=== PATIENT | male | born 1980 | race Caucasian/White ===

== ENCOUNTER 2017-08-31 05:54 | Emergency (ER) | payer OTHER ==
[~2017-08-31] VITALS: Ht 175.3 cm; Wt 74.8 kg
[~2017-08-31 05:54] MED LIST: GEODON40 MG ORAL; LITHIUM CARBON300 MG ORAL; MIRTAZAPINE15 M3 ORAL
[2017-08-31 06:00] VITALS: BP 118/72
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
[2017-08-31 06:54] VITALS: BP 118/72
== END 2017-08-31 06:54 | disposition home or self-care (01) ==
LOC: EDBD 05:54 → EMR 06:05
DX: M79.672 Pain in left foot (principal); F31.9 Bipolar disorder, unspecified
CPT/HCPCS: 29540; 99282

== ENCOUNTER 2018-03-19 09:34 | Emergency (ER) | payer OTHER ==
[~2018-03-19] VITALS: Ht 172.7 cm; Wt 68.0 kg
[2018-03-19] MEDS ORDERED: Bacitracin Oint UD TOPIC ONE (10:00)
[2018-03-19] MEDS ORDERED: Tetanus/Diptheria/Pertussis Vaccine 0.5ml Syr IM ONE (10:00)
--- NOTE | 2018-03-19 10:36 | Diagnostic Imaging Report ---
Indication: Altered level of consciousness Technique: Continuous helical CT scanning of the head was performed without intravenous contrast material. Axial and coronal 5 mm sections were generated. Radiation dose was minimized using automated exposure control Dose: Total Dose Length Product - DLP 1196.[address] Dose Index - CTDIvol(s) 70.38 mGy. Comparison: none Findings: The ventricular system is normal in size and configuration. There is no shift of midline structures. No abnormal extra-axial fluid collections are noted. There is no evidence of intracerebral bleeding. No other abnormal high or low density areas are noted within the brain. Intact calvarium. Visualized orbits and sinuses are unremarkable Impression: Normal CT scan of the head without contrast material. The CT scanner at [facility] is accredited by the [employer] and the scans are performed using protocols designed to limit radiation exposure to as low as reasonably achievable to attain images of sufficient resolution adequate for diagnostic evaluation.
[2018-03-19 10:38] VITALS: BP 126/80
[2018-03-19 10:46] LABS: BASOPHILS % (AUTO) 0.9 % (0.0-2.0); EOSINOPHILS % (AUTO) 5.6 % (0.0-3.0); HEMATOCRIT 42.4 % (42.0-52.0); HEMOGLOBIN 13.8 G/DL (14.2-18.0); LYMPHOCYTES % (AUTO) 18.2 % (20.0-45.0); MEAN CORPUSCULAR VOLUME 85 FL (80-99); MONOCYTES % (AUTO) 7.3 % (1.0-10.0); NEUTROPHILS % (AUTO) 68.1 % (45.0-75.0); PLATELET COUNT 205 K/UL (150-450); RED BLOOD COUNT 4.96 M/UL (4.70-6.10); RED CELL DISTRIBUTION WIDTH 12.3 % (11.6-14.8); WHITE BLOOD COUNT 7.3 K/UL (4.8-10.8)
--- NOTE | 2018-03-19 10:56 | Emergency Room Report ---
History of Present Illness General Chief Complaint: Behavioral Complaint Source: EMS - [employer] Present Illness HPI Patient is brought in by EMS with [employer]. His was apparently running in traffic. PD felt that he was risk to himself. He denies any suicidal ideation to me at this time. Is quite lethargic and refuses to answer most questions. The patient was seen here in October 2012 for drug use. He required sedation at that time but was cleared wasn't felt to have any psychiatric issue aside from drug abuse. Allergies: Coded Allergies: No Known Allergies (Unverified , 08/31/17) UNABLE TO ASSESS (Unverified , 03/19/18) Patient History Limited by: medical condition Past Medical History: see triage record, old chart reviewed Social History: Reports: smoking, alcohol use, drug use Social History Narrative on streets - but stays with friends Reviewed Nursing Documentation: PMH: Agreed; PSxH: Agreed Nursing Documentation-PMH Past Medical History: Deferred Review of Systems All Other Systems: limited Physical Exam Vital Signs Date Time Temp Pulse Resp B/P (MAP) Pulse Ox O2 Delivery O2 Flow Rate FiO2 03/19/18 09:41 97.6 96 16 126/80 96 Room Air 97.5 Sp02 EP Interpretation: reviewed, normal General Appearance: no apparent distress, lethargic, other - dishevelled with skin lesions Head: normocephalic Eyes: bilateral eye PERRL, bilateral eye Scleral Injection ENT: moist mucus membranes Neck: supple Respiratory: lungs clear, normal breath sounds Cardiovascular #1: regular rate, rhythm Cardiovascular #2: 2+ radial (R) Gastrointestinal: normal inspection, normal bowel sounds, non tender, no mass, non-distended, scaphoid Musculoskeletal: back normal, normal range of motion Neurologic: responsive, motor strength/tone normal, DTRs symmetric, sensory intact Psychiatric: depressed affect - lethargic Skin: other - skin lesions, no abscesses Medical Decision Making Diagnostic Impression: Primary Impression: Amphetamine abuse Additional Impressions: Self-destructive behavior UTI (urinary tract infection) Qualified Codes: N30.00 - Acute cystitis without hematuria ER Course Patient is brought with altered mentation by EMS and PD. Differential includes drug abuse, head trauma electrolyte abnormality alcohol intoxication amongst others. He'll be evaluated with CT of the head, chest x-ray and labs. He'll be treated with IV hydration and a tetanus will be given. JIMENEZ insisted on writing a 5150. I tried to speak with the mental health evaluation team. The officers still insisted on writing a hold. Labs + for amphetamines, benzos and THC. Slightly elevated CK. Pyuria. CT performed - no lesions. CXR clear. Once back from CT, patient more awake and more argumentative. Rocephin ordered. He refuses this but agrees to take Rx to fill. Refuses tetanus - states had shot few months ago. Patient denies SI. Medically cleared. Call to Dr. Rosales for evaluation. Cleared by Dr. Rosales. He also denies SI and HI to me. Wants to go home. Patient states will have friend come pick and shovel man. Still refuses meds here but will take bacitracin to apply on own. Ambulatory. Patient stable for outpatient observation and treatment. Laboratory Tests Test 03/19/18 10:23 03/19/18 11:45 White Blood Count 7.3 K/UL (4.8-10.8) Red Blood Count 4.96 M/UL (4.70-6.10) Hemoglobin 13.8 G/DL (14.2-18.0) L Hematocrit 42.4 % (42.0-52.0) Mean Corpuscular Volume 85 FL (80-99) Mean Corpuscular Hemoglobin 27.9 PG (27.0-31.0) Mean Corpuscular Hemoglobin Concent 32.6 G/DL (32.0-36.0) Red Cell Distribution Width 12.3 % (11.6-14.8) Platelet Count 205 K/UL (150-450) Mean Platelet Volume 10.3 FL (6.5-10.1) H Neutrophils (%) (Auto) 68.1 % (45.0-75.0) Lymphocytes (%) (Auto) 18.2 % (20.0-45.0) L Monocytes (%) (Auto) 7.3 % (1.0-10.0) Eosinophils (%) (Auto) 5.6 % (0.0-3.0) H Basophils (%) (Auto) 0.9 % (0.0-2.0) Sodium Level 142 MMOL/L (136-145) Potassium Level 4.4 MMOL/L (3.5-5.1) Chloride Level 107 MMOL/L (98-107) Carbon Dioxide Level 27 MMOL/L (21-32) Anion Gap 8 mmol/L (5-15) Blood Urea Nitrogen 15 mg/dL (7-18) Creatinine 0.9 MG/DL (0.55-1.30) Estimate Glomerular Filtration Rate > 60 mL/min (>60) Glucose Level 95 MG/DL (74-106) Calcium Level 8.9 MG/DL (8.5-10.1) Total Bilirubin 0.7 MG/DL (0.2-1.0) Aspartate Amino Transferase (AST) 29 U/L (15-37) Alanine Aminotransferase (ALT) 34 U/L (12-78) Alkaline Phosphatase 90 U/L (46-116) Total Creatine Kinase 437 U/L (26-308) H Total Protein 7.0 G/DL (6.4-8.2) Albumin 3.4 G/DL (3.4-5.0) Globulin 3.6 g/dL Albumin/Globulin Ratio 0.9 (1.0-2.7) L Salicylates Level < 2.0 ug/mL (2.8-20) L Acetaminophen Level < 2 MCG/ML (10-30) L Serum Alcohol < 3 mg/dL Urine Color Yellow Urine Appearance Slightly cloudy Urine pH 6.5 (4.5-8.0) Urine Specific [place] 1.015 (1.005-1.035) Urine Protein 2+ (NEGATIVE) H Urine Glucose (UA) Negative (NEGATIVE) Urine Ketones Negative (NEGATIVE) Urine Blood 1+ (NEGATIVE) H Urine Nitrite Negative (NEGATIVE) Urine Bilirubin Negative (NEGATIVE) Urine Urobilinogen 1 MG/DL (0.0-1.0) H Urine Leukocyte Esterase 2+ (NEGATIVE) H Urine RBC Pending Urine WBC Pending Urine Squamous Epithelial Cells Pending Urine Bacteria Pending Urine Opiates Screen Negative (NEGATIVE) Urine Barbiturates Screen Negative (NEGATIVE) Phencyclidine (PCP) Screen Negative (NEGATIVE) Urine Amphetamines Screen Positive (NEGATIVE) H Urine Benzodiazepines Screen Positive (NEGATIVE) H Urine Cocaine Screen Negative (NEGATIVE) Urine Marijuana (THC) Screen Positive (NEGATIVE) H EKG Diagnostic Results Rate: normal Rhythm: NSR ST Segments: no acute changes Rhythm Strip Diag. Results EP Interpretation: yes Rhythm: NSR, no PVC's, no ectopy Chest X-Ray Diagnostic Results Chest X-Ray Diagnostic Results : Chest X-Ray Ordered: Yes # of Views/Limited/Complete: 1 View EP Interpretation: Yes Interpretation: no consolidation, no effusion, no pneumothorax, no acute cardiopulmonary disease Impression: No acute disease Electronically Signed by: Abel Aguirre MD CT/MRI/US Diagnostic Results CT/MRI/US Diagnostic Results : Imaging Test Ordered: head Impression no bleed, masses, fx Last Vital Signs Date Time Temp Pulse Resp B/P (MAP) Pulse Ox O2 Delivery O2 Flow Rate FiO2 03/19/18 19:59 98.9 119/68 98 Room Air 03/19/18 10:38 16 03/19/18 09:41 96 Status: improved Disposition: HOME, SELF-CARE Condition: Improved Scripts Bacitracin (Bacitracin) 28.4 Gm Oint...g. 1 APPLIC TOPIC BID, #30 GM Prov: Abel Aguirre M.D. 03/19/18 Nitrofurantoin Monohyd/M-Cryst* (MACROBID 100 MG*) 100 Mg Capsule 100 MG ORAL EVERY 12 HOURS, #14 CAP Prov: Abel Aguirre M.D. 03/19/18 Referrals: NOT CHOSEN [facility]/,REFERRING Patient Instructions: Self-Destructive Behavior Additional Instructions: There is a high probability that the patient has MRSA (Staph) Abel Aguirre M.D. Mar 19, 2018 10:56
[2018-03-19 10:57] LABS: ANION GAP 8 mmol/L (5-15); BLOOD UREA NITROGEN 15 mg/dL (7-18); CALCIUM 8.9 MG/DL (8.5-10.1); CARBON DIOXIDE 27 MMOL/L (21-32); CHLORIDE 107 MMOL/L (98-107); CREATININE 0.9 MG/DL (0.55-1.30); POTASSIUM 4.4 MMOL/L (3.5-5.1); SODIUM 142 MMOL/L (136-145)
[2018-03-19 11:04] LABS: ALANINE AMINOTRANSFERASE 34 U/L (12-78); ALBUMIN 3.4 G/DL (3.4-5.0); ALBUMIN/GLOBULIN RATIO 0.9 (1.0-2.7); ALKALINE PHOSPHATASE 90 U/L (46-116); ASPARTATE AMINO TRANSFERASE 29 U/L (15-37); BILIRUBIN,TOTAL 0.7 MG/DL (0.2-1.0); CREATINE KINASE 437 U/L (26-308)
--- NOTE | 2018-03-19 11:21 | Diagnostic Imaging Report ---
Indication: Chest pain Technique: One view of the chest Comparison: none Findings: Lungs and pleural spaces are clear. Heart size is normal Impression: No acute process
[2018-03-19 11:55] LABS: BILIRUBIN, URINE NEGATIVE (NEGATIVE); GLUCOSE, URINE (UA) NEGATIVE (NEGATIVE); KETONES,URINE NEGATIVE (NEGATIVE); LEUKOCYTE ESTERASE ,URINE 2+ (NEGATIVE); NITRITE,URINE NEGATIVE (NEGATIVE); PH,URINE 6.5 (4.5-8.0); PROTEIN,URINE 2+ (NEGATIVE); UROBILINOGEN,URINE 1 MG/DL (0.0-1.0)
[2018-03-19 11:58] LABS: APPEARANCE,URINE SLIGHTLY CLOUDY; COLOR,URINE YELLOW
[2018-03-19] MEDS ORDERED: cefTRIAXone 1 GM in NS 55 ML IVPB ONE (12:30)
[2018-03-19] MEDS ORDERED: NITROFURANTOIN100 M2 ORAL (15:47)
[2018-03-19] MEDS ORDERED: BACITRACIN15 GM TOPIC (15:47)
[2018-03-19 19:59] VITALS: BP 119/68
== END 2018-03-19 16:09 | disposition home or self-care (01) ==
LOC: EDBD 09:34 → MERGE 10:20 → EMR 10:20
DX: F15.10 Other stimulant abuse, uncomplicated (principal); N30.00 Acute cystitis without hematuria; F91.8 Other conduct disorders; F10.10 Alcohol abuse, uncomplicated; R41.82 Altered mental status, unspecified; F12.10 Cannabis abuse, uncomplicated; Z23 Encounter for immunization
CPT/HCPCS: 36415; 70450; 71045; 80053; 80307; 80329; 81003; 82550; 85025; 87086; 96360; 96361; 99284; J0696; 90471; 90715

== ENCOUNTER 2018-06-30 07:59 | Emergency (ER) | payer OTHER ==
[~2018-06-30] VITALS: Ht 177.8 cm; Wt 63.5 kg
[~2018-06-30 07:59] MED LIST changes: +BACITRACIN15 GM TOPIC; +CLINDAMYCIN HC300 MG ORAL; +NITROFURANTOIN100 M2 ORAL
[2018-06-30] MEDS ORDERED: BUPROPION XL300 MG ORAL (08:03)
[2018-06-30] MEDS ORDERED: GEODON20 MG ORAL (08:03)
[2018-06-30 09:55] VITALS: BP 153/83
[2018-06-30 12:51] VITALS: BP 155/78
[2018-06-30 13:15] VITALS: BP 155/78
--- NOTE | 2018-06-30 15:41 | Emergency Room Report ---
History of Present Illness General Chief Complaint: Skin Rash/Abscess Source: Patient Present Illness HPI Patient presented initially with complaints of left finger discharge Upon further questioning reports that he was here yesterday and had incision of the area however was not able to fill his medications Patient initially noncompliant with history Reports that he wants to sleep And to please don't bother him History of present illness otherwise remains limited Patient was brought by paramedics after complain of the finger discomfort Allergies: Coded Allergies: No Known Allergies (Unverified , 08/31/17) UNABLE TO ASSESS (Unverified , 03/19/18) Patient History Limited by: medical condition Past Medical History: see triage record Pertinent Family History: unable to obtain Reviewed Nursing Documentation: PMH: Agreed; PSxH: Agreed Nursing Documentation-PMH Past Medical History: No History, Except For Hx Asthma: Yes Review of Systems All Other Systems: limited - Other than the ones mentioned in the history of present illness all others are reviewed however they do stay limited due to the patient's mental status Physical Exam Vital Signs Date Time Temp Pulse Resp B/P (MAP) Pulse Ox O2 Delivery O2 Flow Rate FiO2 06/30/18 07:58 98.2 101 18 171/102 98 Room Air Sp02 EP Interpretation: reviewed, normal General Appearance: no apparent distress Head: normocephalic, atraumatic Eyes: bilateral eye PERRL, bilateral eye EOMI ENT: normal pharynx Neck: supple Respiratory: lungs clear, no retraction, no accessory muscle use Cardiovascular #1: regular rate, rhythm Gastrointestinal: non tender, soft Musculoskeletal: other - Patient appears disheveled, there is an incision and the patient's finger with dressing that was removed and then replaced Neurologic: responsive Skin: other - Disheveled appearance Lymphatic: no adenopathy Medical Decision Making Diagnostic Impression: Primary Impression: Paronychia Additional Impression: Medical non-compliance ER Course Upon arrival the patient requested to rest Remained hemodynamically stable After several hours I was told by staff at the patient has started to curse woke up and eloped from the emergency room I do not have a final discussion or disposition with the patient Last Vital Signs Date Time Temp Pulse Resp B/P (MAP) Pulse Ox O2 Delivery O2 Flow Rate FiO2 06/30/18 13:15 98.2 89 20 155/78 98 Room Air Status: other Disposition: ELOPED Condition: Unknown [facility]errals: [facility] (PCP) Placido Bennett DO Jun 30, 2018 15:41
== END 2018-06-30 13:30 | disposition left against medical advice (07) ==
LOC: EDBD 07:59 → EMR 09:16
DX: L03.012 Cellulitis of left finger (principal); J45.909 Unspecified asthma, uncomplicated; Z91.14 Patient's other noncompliance with medication regimen
CPT/HCPCS: 99282

== ENCOUNTER 2018-07-10 14:03 | Emergency (ER) | payer OTHER ==
[2018-07-10] VITALS (11 sets, daily range): BP systolic 129–154; BP diastolic 51–84
[~2018-07-10] VITALS: Ht 162.6 cm; Wt 72.6 kg
[~2018-07-10 14:03] MED LIST changes: +BUPROPION XL300 MG ORAL; +GEODON20 MG ORAL
--- NOTE | 2018-07-10 14:03 | NUR ---
ED Nurse Note: brought in by [address] [employer] due to behavior complaint. Per EMS, pt was walking in and out of the traffic. Per [employer], pt is on hold. Pt is combative. Pt is yelling, cursing, spitting on staffs.
[2018-07-10] MEDS ORDERED: UNOBMED (14:09)
[2018-07-10] MEDS: LORazepam Inj 2mg/ml 1ml IM ONE ×2 (14:19→14:33)
[2018-07-10] MEDS: Haloperidol 5mg/ml Inj IM ONE ×2 (14:19→14:32)
[2018-07-10] MEDS: DiphenhydrAMINE 50mg/ml Inj IM ONE ×2 (14:19→14:33)
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
--- NOTE | 2018-07-10 15:06 | NUR ---
ED Nurse Note: blood and urine sent down to the lab.
--- NOTE | 2018-07-10 15:28 | NUR ---
ED Nurse Note: pt is sleeping in [facility]. restraints are d/c-ed. no s/s of distress nor injuries noted. VSS
[2018-07-10 15:30] LABS: ANION GAP 11 mmol/L (5-15); BLOOD UREA NITROGEN 25 mg/dL (7-18); CALCIUM 8.8 MG/DL (8.5-10.1); CARBON DIOXIDE 25 MMOL/L (21-32); CHLORIDE 104 MMOL/L (98-107); CREATININE 0.9 MG/DL (0.55-1.30); POTASSIUM 3.4 MMOL/L (3.5-5.1); SODIUM 140 MMOL/L (136-145)
[2018-07-10 15:33] LABS: BASOPHILS % (AUTO) 1.4 % (0.0-2.0); EOSINOPHILS % (AUTO) 4.8 % (0.0-3.0); HEMATOCRIT 30.1 % (42.0-52.0); LYMPHOCYTES % (AUTO) 15.9 % (20.0-45.0); MEAN CORPUSCULAR VOLUME 87 FL (80-99); MONOCYTES % (AUTO) 7.2 % (1.0-10.0); NEUTROPHILS % (AUTO) 70.7 % (45.0-75.0); PLATELET COUNT 306 K/UL (150-450); RED BLOOD COUNT 3.46 M/UL (4.70-6.10); RED CELL DISTRIBUTION WIDTH 12.1 % (11.6-14.8)
[2018-07-10 15:35] LABS: ALANINE AMINOTRANSFERASE 30 U/L (12-78); ALBUMIN/GLOBULIN RATIO 0.7 (1.0-2.7); ALKALINE PHOSPHATASE 77 U/L (46-116); ASPARTATE AMINO TRANSFERASE 36 U/L (15-37); BILIRUBIN,TOTAL 0.7 MG/DL (0.2-1.0)
--- NOTE | 2018-07-10 16:19 | NUR ---
ED Nurse Note: Placed patient's belongings in psych locker # 3.
--- NOTE | 2018-07-10 17:35 | NUR ---
ED Nurse Note: PT SLEEPING IN BED, NO S/S OF DISTRESS.
--- NOTE | 2018-07-10 18:58 | NUR ---
HAND-OFF: Report given to [facility] P[facility]. VSS. PT REMAINS STABLE AND SLEEPING IN BED.
--- NOTE | 2018-07-10 19:58 | NUR ---
ER Nurse Note: Pt asleep in bed, VSS, no signs of distress. All safety measures met. Sitter at pt side, will continue to montior.
--- NOTE | 2018-07-10 23:20 | NUR ---
ER Nurse Note: [place] and juice given per pt request. Pt is now asleep, VSS, cooperative. Sitter at bedside; will continue to montior.
[2018-07-11] VITALS (32 sets, daily range): BP systolic 119–143; BP diastolic 78–99
--- NOTE | 2018-07-11 02:13 | NUR ---
ER Nurse Note: Pt awake for brief time; provided urinal, water, and fresh sheets. Pt is calm and asleep currently. VSS, sitter at bedside. All safety measures met, will continue to montior.
--- NOTE | 2018-07-11 03:20 | NUR ---
ER Nurse Note: Pt continue to be asleep; no signs of distress. Pt is calm, VSS. Sitter at bedside. Gave report to Jericho Howard
--- NOTE | 2018-07-11 03:22 | NUR ---
ED Nurse Note: Received patient from [facility]. Patient sleeping NAD. VSS.
--- NOTE | 2018-07-11 04:28 | NUR ---
ED Nurse Note: Rosio sleeping comfortably. NAD. VSS.
--- NOTE | 2018-07-11 05:37 | NUR ---
ED Nurse Note: Rosio sleeping comfortably. NAD. VSS.
--- NOTE | 2018-07-11 06:30 | NUR ---
ED Nurse Note: Rosio sleeping comfortably. NAD. VSS.
--- NOTE | 2018-07-11 07:05 | NUR ---
HAND-OFF: Report given to [facility] Butcher. Patient in stable condition. Plan of care endorsed.
--- NOTE | 2018-07-11 07:09 | NUR ---
ED Nurse Note: REPORT RECEIVED FROM VARGHESE PARKER RN. VSS. PT REMAINS ASLEEP WITH SITTER AT BEDSIDE.
--- NOTE | 2018-07-11 07:25 | NUR ---
ED Nurse Note: PT WOKE UP AGITATED AND CURSING AND ATTEMPTED TO RUN OUT OF ER WHILE ON 5150 HOLD. SECURITY CALLED AND PT TAKEN BACK TO BED. MEDS ADMINISTERED PER DR. ANGUIANO' ORDERS.
[2018-07-11] MEDS ORDERED: LORazepam Inj 2mg/ml 1ml IM ONE (07:30)
[2018-07-11] MEDS ORDERED: DiphenhydrAMINE 50mg/ml Inj IM ONE (07:30)
[2018-07-11] MEDS ORDERED: Haloperidol 5mg/ml Inj IM ONE (07:30)
--- NOTE | 2018-07-11 07:43 | NUR ---
ED Nurse Note: BREAKFAST TRAY AT BEDSIDE. PT OFFERED FOOD BUT STATES HE WILL NOT EAT AT THIS TIME. SITTER AWARE THAT BREAKFAST TRAY AT BEDSIDE AND INSTRUCTED TO ASSIST WITH FEEDING WHEN PT STATES HE IS READY TO EAT.
--- NOTE | 2018-07-11 08:43 | NUR ---
ED Nurse Note: PT STATES HE IS READY TO HAVE BREAKFAST. PT ASSISTED WITH FEEDING. 100% OF BREAKFAST CONSUMED. SITTER REMAINS AT BEDSIDE.
--- NOTE | 2018-07-11 08:58 | NUR ---
ED Nurse Note: PT STATES HE NEEDS TO VOID. PT ASSISTED WITH VOIDING VIA URINAL. SITTER REMAINS AT BEDSIDE.
--- NOTE | 2018-07-11 11:58 | NUR ---
ED Nurse Note: SPOKE WITH KATIE AT [facility] WHO STATES PT WILL BE ACCEPTED. ADDRESS: [address] [place] [address], [id number], [address] NURSE: [phone] DOCTOR: DR. ALEXIS
--- NOTE | 2018-07-11 12:25 | NUR ---
ED Nurse Note: [facility] CALLED FOR REPORT. REPORT GIVEN TO [facility]. FACILITY STATES THEY ARE READY TO TAKE PT. AMBULANCE ETA IS 1HR. WILL CONTINUE TO MONITOR UNTIL TRANSFER.
--- NOTE | 2018-07-11 13:30 | NUR ---
ED Nurse Note: Pt. left via gurney and transferred [facility] with all his belongings given back. No s/s of acute distress noted
== END 2018-07-11 13:30 ==
LOC: EDBD 14:03 → EMR 14:13
DX: F91.9 Conduct disorder, unspecified (principal); F15.10 Other stimulant abuse, uncomplicated; J45.909 Unspecified asthma, uncomplicated
CPT/HCPCS: 36415; 80053; 80307; 80329; 85025; 96372; 99285; J1200; J1630

== ENCOUNTER 2018-12-13 18:13 | Emergency (ER) | payer OTHER ==
[~2018-12-13] VITALS: Ht 170.2 cm; Wt 68.0 kg
[~2018-12-13 18:13] MED LIST changes: +UNOBMED
--- NOTE | 2018-12-13 18:13 | NUR ---
ED Nurse Note: @ 1810 Pt is placed in bed 7 with rn at the bedside.
[2018-12-13] MEDS ORDERED: LORazepam Inj 2mg/ml 1ml IM ONE (18:30)
[2018-12-13] MEDS ORDERED: Haloperidol 5mg/ml Inj IM ONE (18:30)
[2018-12-13] MEDS ORDERED: DiphenhydrAMINE 50mg/ml Inj IM ONE (18:30)
--- NOTE | 2018-12-13 18:30 | Emergency Room Report ---
History of Present Illness General Chief Complaint: Behavioral Complaint Source: Patient, EMS, [employer] Enforcement Present Illness HPI Patient brought in by EMS. They were called by [employer]. The patient was running in and out of traffic with his clothes off. The patient denies taking any psychiatric medication at this time. He denies suicidal or homicidal ideation. He also denies doing any alcohol or drugs. [employer] ER placing the patient on a 5150 as danger to himself. The patient's been seen here multiple times. Last visit June he was + for amphetamines. He was transferred to [place] for psychiatric observation and care. Patient refuses to answer questions. Allergies: Coded Allergies: No Known Allergies (Unverified , 08/31/17) UNABLE TO ASSESS (Unverified , 03/19/18) Patient History Limited by: medical condition, other - refuses to answer Past Medical History: see triage record, old chart reviewed Social History: Reports: smoking, drug use; Denies: alcohol use Social History Narrative on streets Reviewed Nursing Documentation: PMH: Agreed; PSxH: Agreed Nursing Documentation-PMH Hx Asthma: Yes Review of Systems All Other Systems: limited Physical Exam Vital Signs Date Time Temp Pulse Resp B/P (MAP) Pulse Ox O2 Delivery O2 Flow Rate FiO2 12/13/18 18:10 97 20 132/88 (103) 99 Sp02 EP Interpretation: reviewed, normal General Appearance: alert, GCS 15, thin, other Head: normocephalic, atraumatic Eyes: bilateral eye PERRL, bilateral eye Scleral Injection ENT: dry mucus membranes Neck: supple Respiratory: lungs clear, normal breath sounds Cardiovascular #1: regular rate, rhythm Cardiovascular #2: 2+ radial (R) Gastrointestinal: normal inspection, normal bowel sounds, non tender, no mass, non-distended, scaphoid Musculoskeletal: back normal, gait/station normal, normal range of motion Neurologic: alert, oriented - X2 Psychiatric: no suicidal/homicidal ideation, anxious, other - Paranoid and delusional Skin: warm/dry, other - Disheveled and dirty Medical Decision Making Medical: Substance Abuse Behavioral: Schizophrenia Reaction to Intervention: Escalated Behavior Restraint Reassesment I, Abel Aguirre MD, have personally evaluated this patient. Laboratory tests have been reviewed and addressed accordingly. The patient is deemed to present a danger to themselves and/or others. This is based on the exam, history EMS/ [employer] and observed or reported behavior. Attempts for non-invasive measures have been considered and/or attempted, however, have been futile. It is in the best interest of the nursing staff, the patient, and others involved in this patient's care that behavioral restraints be applied. Patient evaluation reveals the following: agitated and combative, not responding to attempts to calm Diagnostic Impression: Primary Impression: Behavioral disorder Additional Impressions: Amphetamine abuse Dehydration ER Course Patient presents with psychotic behavior and being placed on a 5150. Differential includes exacerbation of schizoaffective disorder, amphetamine abuse, dehydration, rhabdomyolysis, electrolyte imbalance amongst others. There is no evidence of head trauma and CT of the head is not indicated. Also his lungs are clear and therefore chest x-ray is not indicated. Patient will be evaluated with EKG, and labs patient. The patient requires restraints initially and sedation as he is combative. Patient will receive IV hydration. sedated. Strengths removed. Labs remarkable for amphetamines. Min elevated CK. Medically clear for psychiatric evaluation. 22:[address] Aguirre. Laboratory Tests Test 12/13/18 18:35 White Blood Count 7.1 K/UL (4.8-10.8) Red Blood Count 4.69 M/UL (4.70-6.10) L Hemoglobin 12.9 G/DL (14.2-18.0) L Hematocrit 38.0 % (42.0-52.0) L Mean Corpuscular Volume 81 FL (80-99) Mean Corpuscular Hemoglobin 27.4 PG (27.0-31.0) Mean Corpuscular Hemoglobin Concent 33.8 G/DL (32.0-36.0) Red Cell Distribution Width 13.2 % (11.6-14.8) Platelet Count 217 K/UL (150-450) Mean Platelet Volume 9.0 FL (6.5-10.1) Neutrophils (%) (Auto) 51.5 % (45.0-75.0) Lymphocytes (%) (Auto) 34.7 % (20.0-45.0) Monocytes (%) (Auto) 7.4 % (1.0-10.0) Eosinophils (%) (Auto) 4.7 % (0.0-3.0) H Basophils (%) (Auto) 1.7 % (0.0-2.0) Urine Color Yellow Urine Appearance Clear Urine pH 5 (4.5-8.0) Urine Specific [place] 1.025 (1.005-1.035) Urine Protein 2+ (NEGATIVE) H Urine Glucose (UA) Negative (NEGATIVE) Urine Ketones 1+ (NEGATIVE) H Urine Blood Negative (NEGATIVE) Urine Nitrite Negative (NEGATIVE) Urine Bilirubin Negative (NEGATIVE) Urine Urobilinogen 4 MG/DL (0.0-1.0) H Urine Leukocyte Esterase 1+ (NEGATIVE) H Urine RBC 2-4 /HPF (0 - 0) H Urine WBC 2-4 /HPF (0 - 0) Urine Squamous Epithelial Cells Occasional /LPF Urine Bacteria Few /HPF (NONE) Urine Mucus Many /LPF (NONE/OCC) H Sodium Level 141 MMOL/L (136-145) Potassium Level 4.0 MMOL/L (3.5-5.1) Chloride Level 106 MMOL/L (98-107) Carbon Dioxide Level 26 MMOL/L (21-32) Anion Gap 9 mmol/L (5-15) Blood Urea Nitrogen 13 mg/dL (7-18) Creatinine 1.0 MG/DL (0.55-1.30) Estimate Glomerular Filtration Rate > 60 mL/min (>60) Glucose Level 100 MG/DL (74-106) Calcium Level 8.8 MG/DL (8.5-10.1) Total Bilirubin 1.1 MG/DL (0.2-1.0) H Direct Bilirubin 0.2 MG/DL (0.0-0.3) Aspartate Amino Transferase (AST) 24 U/L (15-37) Alanine Aminotransferase (ALT) 24 U/L (12-78) Alkaline Phosphatase 87 U/L (46-116) Total Creatine Kinase 404 U/L (26-308) H Total Protein 6.9 G/DL (6.4-8.2) Albumin 3.8 G/DL (3.4-5.0) Globulin 3.1 g/dL Albumin/Globulin Ratio 1.2 (1.0-2.7) Salicylates Level 0.5 ug/mL (2.8-20) L Urine Opiates Screen Negative (NEGATIVE) Acetaminophen Level < 2 MCG/ML (10-30) L Urine Barbiturates Screen Negative (NEGATIVE) Phencyclidine (PCP) Screen Negative (NEGATIVE) Urine Amphetamines Screen Positive (NEGATIVE) H Urine Benzodiazepines Screen Negative (NEGATIVE) Urine Cocaine Screen Negative (NEGATIVE) Urine Marijuana (THC) Screen Positive (NEGATIVE) H Serum Alcohol < 3 mg/dL EKG Diagnostic Results Rate: normal Rhythm: NSR ST Segments: no acute changes - R axis Rhythm Strip Diag. Results EP Interpretation: yes Rhythm: NSR, no PVC's, no ectopy Last Vital Signs Date Time Temp Pulse Resp B/P (MAP) Pulse Ox O2 Delivery O2 Flow Rate FiO2 12/13/18 20:00 86 17 133/83 100 Room Air Status: improved Abel Aguirre MD Dec 13, 2018 18:30
--- NOTE | 2018-12-13 18:37 | NUR ---
ED Nurse Note: Pt BIBA from the street due to behavioral complaint. Pt was "trying to run in front of a car", was put on 5150 hold by [employer]. Pt is combative and uncooperative radha. Vital signs stable. Will cont to monitor.
[2018-12-13 18:42] VITALS: BP 113/58
--- NOTE | 2018-12-13 18:47 | NUR ---
ED Nurse Note: Belongings is in locker #1.
[2018-12-13 18:53] LABS: BASOPHILS % (AUTO) 1.7 % (0.0-2.0); EOSINOPHILS % (AUTO) 4.7 % (0.0-3.0); HEMOGLOBIN 12.9 G/DL (14.2-18.0); LYMPHOCYTES % (AUTO) 34.7 % (20.0-45.0); MEAN CORPUSCULAR VOLUME 81 FL (80-99); MONOCYTES % (AUTO) 7.4 % (1.0-10.0); NEUTROPHILS % (AUTO) 51.5 % (45.0-75.0); PLATELET COUNT 217 K/UL (150-450); RED BLOOD COUNT 4.69 M/UL (4.70-6.10); RED CELL DISTRIBUTION WIDTH 13.2 % (11.6-14.8); WHITE BLOOD COUNT 7.1 K/UL (4.8-10.8)
[2018-12-13 18:57] LABS: APPEARANCE,URINE CLEAR; BILIRUBIN, URINE NEGATIVE (NEGATIVE); COLOR,URINE YELLOW; GLUCOSE, URINE (UA) NEGATIVE (NEGATIVE); KETONES,URINE 1+ (NEGATIVE); LEUKOCYTE ESTERASE ,URINE 1+ (NEGATIVE); NITRITE,URINE NEGATIVE (NEGATIVE); PH,URINE 5 (4.5-8.0); PROTEIN,URINE 2+ (NEGATIVE); UROBILINOGEN,URINE 4 MG/DL (0.0-1.0)
[2018-12-13 19:04] LABS: ANION GAP 9 mmol/L (5-15); BLOOD UREA NITROGEN 13 mg/dL (7-18); CALCIUM 8.8 MG/DL (8.5-10.1); CARBON DIOXIDE 26 MMOL/L (21-32); CHLORIDE 106 MMOL/L (98-107); SODIUM 141 MMOL/L (136-145)
--- NOTE | 2018-12-13 19:15 | NUR ---
ED Nurse Note: RECIEVED REPORT FROM AM NURSE TO [facility], PT IN BED SLEEPING, AROUSES TO TACTILE STIMULI, PT IS ON 5150 HOLD FOR DTS, CURRENTLY ON CARDIAC MONITORING, V/S STABLE, IV SITE PATENT WITH MAINTENANCE FLUIDS INFUSING, SITE INTACT AND PATENT, NAD NOTED AT THIS TIME, WILL CONTINUE TO CLOSELY MONITOR.
[2018-12-13 19:17] LABS: ALANINE AMINOTRANSFERASE 24 U/L (12-78); ALBUMIN 3.8 G/DL (3.4-5.0); ALBUMIN/GLOBULIN RATIO 1.2 (1.0-2.7); ALKALINE PHOSPHATASE 87 U/L (46-116); ASPARTATE AMINO TRANSFERASE 24 U/L (15-37); BILIRUBIN,TOTAL 1.1 MG/DL (0.2-1.0); CREATINE KINASE 404 U/L (26-308)
[2018-12-13 19:34] LABS: BILIRUBIN,DIRECT 0.2 MG/DL (0.0-0.3)
[2018-12-13 20:00] VITALS: BP 133/83
--- NOTE | 2018-12-13 21:00 | NUR ---
ED Nurse Note: PT CONTINUES TO SLEEP QUIETLY IN BED, ON CONTINUOUS CARDIAC MONITORING, V/S STABLE, NO SOB OR LABORED BREATHING, PT AROUSES EASILY TO VERBAL STIMULI, IV SITE PATENT WITH FLUIDS INFUSING, TOLERATING WELL, WILL CONTINUE TO CLOSELY ONITOR PT REMAINS ON 5150 HOLD PRECAUTIONS WITH CONTINUOS, CLOSE OBSERVATION.
[2018-12-13 22:00] VITALS: BP 118/67
--- NOTE | 2018-12-13 22:20 | NUR ---
ED Nurse Note: Recieved report from [facility]. Pt sleeping in bed, non-labored breathing, will continue to monitor. VSS
--- NOTE | 2018-12-13 23:15 | NUR ---
ED Nurse Note: NO CHANGES OR DISTRESS NOTED, PT CONTINUES TO SLEEP, REMAINS ON 5150 HOLD PRECAUTIONS, V/S STABLE, IV SITE PATENT, NO CHANGES OR INCREASED DISTRESS, REPORT GIVEN TO [facility], CURRENTLY NAD NOTED.
[2018-12-14] VITALS (8 sets, daily range): BP systolic 110–132; BP diastolic 60–80
--- NOTE | 2018-12-14 00:30 | NUR ---
ED Nurse Note: Pt resting in bed, eyes closed non-labored breathing, toiletting offered, pt declined. Will continue to monitor
--- NOTE | 2018-12-14 02:30 | NUR ---
ED Nurse Note: Pt awake and offered water and urinal, pt declined at this time. Pt now laynig down resting with eyes closed, non-labored breathing, will continue to monitor
--- NOTE | 2018-12-14 04:54 | NUR ---
ED Nurse Note: Pt side lying, eyes closed non-labored breathing, will continue to monitor. Medically cleared
--- NOTE | 2018-12-14 07:01 | NUR ---
ED Nurse Note: Pt side lying with eyes closed, non-labored breathing, will continue to monitor
--- NOTE | 2018-12-14 07:08 | NUR ---
HAND-OFF: Report given to [facility].
--- NOTE | 2018-12-14 08:10 | NUR ---
ED Nurse Note: PT RESTING ON BED WITH NO DISTRESS. CONSUMED BREAKFAST 100%. VSS.
--- NOTE | 2018-12-14 12:33 | NUR ---
ED Nurse Note: REPORT GIVEN TO NALLELY.
--- NOTE | 2018-12-14 13:43 | NUR ---
report given to ambulance personal .patient has been transferd out with all the paper work including the 5150 hold and all belonging. saline lock dcd intact .patient is awake alert oriented x 4
== END 2018-12-14 13:46 ==
LOC: EDBD 18:13 → EMR 21:44
DX: F60.9 Personality disorder, unspecified (principal); F15.10 Other stimulant abuse, uncomplicated; E86.0 Dehydration; F17.200 Nicotine dependence, unspecified, uncomplicated
CPT/HCPCS: 36415; 80053; 80307; 80329; 81003; 82248; 82550; 85025; 93005; 96360; 96361; 96372; 99285; J1200; J1630